=== PATIENT | male | born 1970 | race Caucasian/White ===

== ENCOUNTER 2019-03-30 16:24 | Emergency (ER) | payer BC, OTHER ==
[~2019-03-30] VITALS: Ht 170.2 cm; Wt 74.8 kg
[~2019-03-30 16:24] MED LIST: HYDR-3924 PO
[2019-03-30 16:33] VITALS: BP_SYST 146
[2019-03-30] MEDS ORDERED: NACL 0.9% 1,000 ML IV ONE (16:49)
[2019-03-30] MEDS ORDERED: KETOROLAC TROMETHAMINE 30 MG VIAL IVP ONE (17:00)
[2019-03-30 17:15] LABS: BASOPHILS % (AUTO) 0.6 % (0.0-2.0); EOSINOPHILS # (AUTO) 0.2 K/uL (0.0-0.4); EOSINOPHILS % (AUTO) 2.5 % (0.0-4.0); HEMATOCRIT 43.3 % (36-54); HEMOGLOBIN 14.6 g/dL (14.0-18.0); LYMPHOCYTES # (AUTO) 2.4 K/uL (1.0-5.5); LYMPHOCYTES % (AUTO) 28.5 % (20.5-51.5); MEAN CORPUSCULAR HEMOGLOBIN 31 pg (27-31); MEAN CORPUSCULAR HGB CONC 34 % (32-36); MEAN CORPUSCULAR VOLUME 92 fL (79.0-98.0); MONOCYTES # (AUTO) 0.7 K/uL (0.0-1.0); MONOCYTES % (AUTO) 8.2 % (1.7-9.3); NEUTROPHILS % (AUTO) 60.2 % (40.0-70.0); PLATELET COUNT (AUTO) 260 K/uL (130-430); RED BLOOD CELL COUNT(AUTO) 4.72 MIL/uL (4.2-6.2); RED CELL DISTRIBUTION WIDTH 13.4 % (9.0-15.0); WHITE BLOOD COUNT (AUTO) 8.3 K/uL (4.8-10.8)
[2019-03-30 17:17] LABS: CALCIUM 9.3 mg/dL (8.4-11.0); CREATININE 1.13 mg/dL (0.55-1.30); POTASSIUM 3.6 mmol/L (3.5-5.1)
[2019-03-30 17:22] LABS: TOTAL BILIRUBIN 0.4 mg/dL (0.0-1.0)
[2019-03-30 18:23] VITALS: BP_SYST 129
== END 2019-03-30 18:23 | disposition home or self-care (01) ==
LOC: SED 16:24
DX: N20.0 Calculus of kidney (principal); Z88.5 Allergy status to narcotic agent; Z79.899 Other long term (current) drug therapy
CPT/HCPCS: 36415; 80053; 85025; 96374; 99283; J1885; J7030

== ENCOUNTER 2020-11-30 06:03 | Emergency (ER) | payer BC ==
[~2020-11-30] VITALS: Ht 172.7 cm; Wt 88.5 kg
[2020-11-30 07:00] VITALS: BP_SYST 138
--- NOTE | 2020-11-30 07:01 | NUR ---
ER Dr. Robles at bedside examining patient.
--- NOTE | 2020-11-30 07:10 | NUR ---
Patient transported to radiology, accompanied by staff.
[2020-11-30] MEDS ORDERED: KETOROLAC TROMETHAMINE 30 MG VIAL IVP ONE (07:15)
[2020-11-30] MEDS ORDERED: NACL 0.9% 1,000 ML IV ONE (07:15)
[2020-11-30] MEDS ORDERED: ONDANSETRON HCL 4 MG/2 ML VIAL IVP ONE (07:15)
--- NOTE | 2020-11-30 07:20 | NUR ---
Patient to ER Hallway bed to gown for evaluation. Side rails up.
[2020-11-30 07:44] LABS: BASOPHILS % (AUTO) 0.7 % (0.0-2.0); EOSINOPHILS # (AUTO) 0.2 K/uL (0.0-0.4); EOSINOPHILS % (AUTO) 3.1 % (0.0-4.0); HEMATOCRIT 43.9 % (36-54); HEMOGLOBIN 14.9 g/dL (14.0-18.0); LYMPHOCYTES # (AUTO) 1.4 K/uL (1.0-5.5); LYMPHOCYTES % (AUTO) 26.5 % (20.5-51.5); MEAN CORPUSCULAR HEMOGLOBIN 31 pg (27-31); MEAN CORPUSCULAR HGB CONC 34 % (32-36); MEAN CORPUSCULAR VOLUME 91 fL (79.0-98.0); MONOCYTES # (AUTO) 0.5 K/uL (0.0-1.0); MONOCYTES % (AUTO) 9.8 % (1.7-9.3); NEUTROPHILS # (AUTO) 3.2 K/uL (1.8-7.7); NEUTROPHILS % (AUTO) 59.9 % (40.0-70.0); PLATELET COUNT (AUTO) 241 K/uL (130-430); RED BLOOD CELL COUNT(AUTO) 4.82 MIL/uL (4.2-6.2); RED CELL DISTRIBUTION WIDTH 13.3 % (9.0-15.0); WHITE BLOOD COUNT (AUTO) 5.3 K/uL (4.8-10.8)
--- NOTE | 2020-11-30 07:45 | NUR ---
ER at bedside examining patient.
[2020-11-30 08:16] LABS: CALCIUM 8.5 mg/dL (8.4-11.0); CREATININE 1.2 mg/dL (0.55-1.30)
[2020-11-30 08:22] LABS: TOTAL BILIRUBIN 0.4 mg/dL (0.0-1.0)
[2020-11-30 09:05] VITALS: BP_SYST 138
--- NOTE | 2020-11-30 09:07 | NUR ---
Patient given written and verbal discharge instructions and verbalizes understanding. ER MD discussed with patient the results and treatment provided. Patient in stable condition. ID arm band removed. IV catheter removed intact and dressing applied, no active bleeding. Rx of [place], Motrin, and Flomax given. Patient educated on pain management and to follow up with PMD. Pain Scale 1/10. Opportunity for questions provided and answered. Medication side effect fact sheet provided.
== END 2020-11-30 09:07 | disposition home or self-care (01) ==
LOC: SED 06:03
DX: N20.0 Calculus of kidney (principal); Z88.6 Allergy status to analgesic agent
CPT/HCPCS: 36415; 74176; 76376; 80053; 81002; 85025; 96361; 96374; 96375; 99284; J1885; J2405; J7030

== ENCOUNTER 2021-10-30 06:18 | Emergency (ER) | payer BC ==
[~2021-10-30] VITALS: Ht 172.7 cm; Wt 74.8 kg
[~2021-10-30 06:18] MED LIST changes: -HYDR-3924 PO; +HYDR-4497 PO
--- NOTE | 2021-10-30 06:45 | NUR ---
Patient ambulatory to bed 7 for evaluation and treatment
--- NOTE | 2021-10-30 06:46 | NUR ---
ER at bedside examining patient.
[2021-10-30 06:47] VITALS: BP_SYST 142
--- NOTE | 2021-10-30 06:47 | NUR ---
ER Dr. HAHN at bedside examining patient.
--- NOTE | 2021-10-30 06:50 | NUR ---
PT CAME TO ER FOR A KIDNEY STONE TO RIGHT SIDE. 04/27 PAIN. THIS IS NOT HIS FIRST KIDNEY STONE. PT TOOK 800 MG IBUPROFEN AND A 5MG NORCO AT HOME AT 0615 BEFORE COMING TO ER. A&OX4.
[2021-10-30] MEDS ORDERED: KETOROLAC TROMETHAMINE 60 MG/2 ML VIAL IM ONE (07:00)
--- NOTE | 2021-10-30 07:02 | NUR ---
LAB AT BEDSIDE
--- NOTE | 2021-10-30 07:09 | NUR ---
REPORT GIVENT TO CORINA CARREON
--- NOTE | 2021-10-30 07:10 | NUR ---
Assumed care of patient. Report received from Blade CARREON.
[2021-10-30 07:19] LABS: BASOPHILS % (AUTO) 0.5 % (0.0-2.0); EOSINOPHILS # (AUTO) 0.3 K/uL (0.0-0.4); EOSINOPHILS % (AUTO) 4.8 % (0.0-4.0); HEMATOCRIT 41.2 % (36-54); HEMOGLOBIN 14.2 g/dL (14.0-18.0); LYMPHOCYTES # (AUTO) 1.8 K/uL (1.0-5.5); LYMPHOCYTES % (AUTO) 28.9 % (20.5-51.5); MEAN CORPUSCULAR HEMOGLOBIN 31 pg (27-31); MEAN CORPUSCULAR HGB CONC 34 % (32-36); MEAN CORPUSCULAR VOLUME 90 fL (79.0-98.0); MONOCYTES # (AUTO) 0.6 K/uL (0.0-1.0); MONOCYTES % (AUTO) 10.4 % (1.7-9.3); NEUTROPHILS # (AUTO) 3.4 K/uL (1.8-7.7); NEUTROPHILS % (AUTO) 55.4 % (40.0-70.0); PLATELET COUNT (AUTO) 251 K/uL (130-430); RED CELL DISTRIBUTION WIDTH 13.5 % (9.0-15.0); WHITE BLOOD COUNT (AUTO) 6.1 K/uL (4.8-10.8)
--- NOTE | 2021-10-30 07:20 | NUR ---
First contact made with patient. Patient resting in bed; awake to voice, alert and oriented x 3. Reports pain has improved and requested water to help "flush" the kidney stones. Water provided. Awaiting further evaluation. Will continue to monitor.
[2021-10-30 07:25] LABS: CALCIUM 8.9 mg/dL (8.4-11.0); CREATININE 1.2 mg/dL (0.55-1.30); POTASSIUM 4.3 mmol/L (3.5-5.1)
[2021-10-30 07:40] LABS: ALBUMIN 3.8 g/dL (3.4-4.8); INR 0.9 (0.80-1.20); PROTHROMBIN TIME 9.8 SECS (9.5-12.5); TOTAL BILIRUBIN 0.1 mg/dL (0.0-1.0)
[2021-10-30] MEDS ORDERED: HYDR-3917 PO (07:53)
[2021-10-30] MEDS ORDERED: IBUP-1971 PO (07:53)
--- NOTE | 2021-10-30 08:05 | NUR ---
RN spoke with patient after MD reported patient wanted to leave AMA, as he did not want a CT scan. Patient stated he is willing to stay but continues to refuse CT scan. Dr Lai informed.
[2021-10-30 08:17] VITALS: BP_SYST 142
--- NOTE | 2021-10-30 08:17 | NUR ---
Patient does not wish to proceed with medical care recommended by Dr Lai. Patient given information related to possible complications, up to and including , which could occur as a result of leaving hospital at this time. Patient verbalizes understanding of risks involved leaving against medical advice. Patient has signed AMA form.
== END 2021-10-30 08:17 | disposition left against medical advice (07) ==
LOC: SED 06:18
DX: N23 Unspecified renal colic (principal); Z88.5 Allergy status to narcotic agent; Z79.899 Other long term (current) drug therapy
CPT/HCPCS: 36415; 80053; 82150; 83605; 83690; 85025; 85610; 85730; 96372; 99283; J1885

== ENCOUNTER 2022-04-27 16:19 | Emergency (ER) | payer BC ==
[~2022-04-27 16:19] MED LIST changes: +HYDR-3917 PO; +IBUP-1969 PO; +IBUP-1971 PO; +ONDA-8 TL; +PERC10 PO
--- NOTE | 2022-04-27 16:30 | NUR ---
Pt left without being seen, prefers to follow up with PMD.
== END 2022-04-27 16:30 | disposition left against medical advice (07) ==
LOC: SED 16:19
DX: R50.9 Fever, unspecified (principal); Z53.21 Procedure and treatment not carried out due to patient leaving prior to being seen by health care provider